=== PATIENT | female | born 1955 | race Caucasian/White ===

== ENCOUNTER 2017-06-06 15:26 | Outpatient (CLI) | payer OTHER ==
[2013-07-14 03:29] VITALS: BP 117/69
[2017-06-06 15:44] LABS: BASOPHILS % 0.7 (0.0-1.5); MEAN CORPUSCULAR HEMOGLOBIN 29.5 pg (28.0-34.0); MEAN CORPUSCULAR VOLUME 87.1 fl (80.0-100.0); MONOCYTES % 7.6 % (0.0-11.0); NEUTROPHILS # 3.9 # k/uL (1.4-7.7)
[2017-06-06 16:33] LABS: eGFR (African) > 60; eGFR (Non-African) > 60
== END 2017-06-06 15:27 ==
LOC: RT 15:26
PROVIDERS: ATTEND Family Medicine
DX: R00.2 Palpitations (principal); R42 Dizziness and giddiness
CPT/HCPCS: 36415; 80053; 84443; 85025

== ENCOUNTER 2017-06-27 16:26 | Outpatient (CLI) | payer OTHER ==
[2013-07-14 03:29] VITALS: BP 117/69
== END 2017-06-27 16:27 ==
LOC: LABRHC 16:26
PROVIDERS: ATTEND Family Medicine
DX: R30.0 Dysuria (principal)
CPT/HCPCS: 87086

== ENCOUNTER 2018-05-03 15:13 | Outpatient (CLI) | payer OTHER ==
[2013-07-14 03:29] VITALS: BP 117/69
[2018-05-03 15:37] LABS: BASOPHILS % 0.6 (0.0-1.5); EOSINOPHILS % 1.3 % (0.0-6.8); MEAN CORPUSCULAR HEMOGLOBIN 29.6 pg (28.0-34.0); MEAN CORPUSCULAR VOLUME 90.3 fl (80.0-100.0); MONOCYTES % 6.5 % (0.0-11.0); NEUTROPHILS # 3.6 # k/uL (1.4-7.7)
[2018-05-03 16:02] LABS: eGFR (African) > 60; eGFR (Non-African) > 60
== END 2018-05-03 15:18 | disposition home or self-care (01) ==
LOC: LAB 15:13
PROVIDERS: ATTEND Family Medicine
DX: R07.9 Chest pain, unspecified (principal)
CPT/HCPCS: 36415; 80048; 84484; 85025

== ENCOUNTER 2018-07-02 16:00 | Outpatient (CLI) | payer OTHER ==
[2013-07-14 03:29] VITALS: BP 117/69
[2018-07-02 16:24] LABS: EOSINOPHILS % 1.5 % (0.0-6.8); MEAN CORPUSCULAR HEMOGLOBIN 30.2 pg (28.0-34.0); MONOCYTES % 8.2 % (0.0-11.0)
[2018-07-02 16:25] LABS: BASOPHILS % 0.5 (0.0-1.5); NEUTROPHILS # 4.9 # k/uL (1.4-7.7)
== END 2018-07-02 16:15 | disposition home or self-care (01) ==
LOC: LAB 16:00
PROVIDERS: ATTEND Family Medicine
DX: R53.82 Chronic fatigue, unspecified (principal); R73.9 Hyperglycemia, unspecified; E05.90 Thyrotoxicosis, unspecified without thyrotoxic crisis or storm
CPT/HCPCS: 83036; 84443; 85025

== ENCOUNTER 2018-08-27 08:00 | Outpatient (CLI) | payer OTHER ==
[2013-07-14 03:29] VITALS: BP 117/69
--- NOTE | 2018-09-06 10:49 | OP Clinic Progress Note ---
SUBJECTIVE: Lizbeth Butt is a 63-year-old female who presented to clinic today for a right 5th ingrown toenail. The patient states that she had an infection start and was placed on antibiotics last week by Dr. Lieberman. She is continuing and will finish the antibiotics still. She has had pain there for a little while now on that right 5th toenail area specifically. She admits to trying spray bandage, soaks, etc., but without success of relieving the pain lately. The patient would like to have the toenail removed and have it removed permanently today after discussion of temporary versus permanent removal. The patient does not admit to any fevers, chills, nausea, vomiting, shortness of breath, or chest pain at this time. OBJECTIVE: VITAL SIGNS: T: 97.6 degrees Fahrenheit, BP: 153/89, heart rate 91, R: 18, oxygen saturation is 96% on room air. VASCULAR: DP and PT pulses are 2+ of the right foot. Capillary refill time is less than 3 seconds to the toes of the right foot. There is no edema of the right foot. DERMATOLOGIC: There is no significant erythema nor any drainage at this time. No purulence noted either. There are no other gross abnormalities noted or hyperkeratosis noted. MUSCULOSKELETAL: There is pain on palpation noted about the right 5th toenail medial and lateral borders. There are no other gross abnormalities noted. NEUROLOGIC: Light touch sensation is intact to the toes of the right foot. ASSESSMENT: Right 5th toe onychocryptosis, medial and lateral borders. PROCEDURE #1: Right 5th toe total nail avulsion with chemical matrixectomy. An alcohol swab was utilized to clean the right 5th toe base and it was injected with 3 mL of 2% lidocaine plain. The toe was then exsanguinated with pressure and a tourniquet applied at the base of the toe. The toe was checked for anesthesia and it was found to be without pain. The right 5th toenail was then removed in its entirety and checked for any remaining nail which was found to be absent. The site was flushed with a copious amount of normal saline. Phenol was then applied utilizing 2 cotton-tip applicators at a time in increments of 45 seconds and then 30 seconds, 30 seconds, 30 seconds, totally 4 applications. The site was then flushed with a copious amount of 70% isopropyl alcohol. The tourniquet was removed and a prompt hyperemic response was noted to the right 5th toe. The site was then flushed again with a copious amount of 70% isopropyl alcohol to make sure that there was nothing remaining. It should be noted that a small amount of acid looks like it exited the surgical site and went between the 4th and 5th toes causing a little bit of whiteness to the lateral 4th toe and medial 5th toe. This was rinsed with a copious amount of the alcohol as mentioned above. This was discussed with the patient and she was encouraged that she may need to utilize a Band-Aid there as well as needed. She will need to keep an eye on that. The right 5th toe was then dried and then dressed with triple antibiotic ointment and a 2 x 2 gauze times 2, followed by 2-inch Zhao and 1-inch Coban beginning on the 5th toe and extending onto the distal forefoot of the right foot. The patient tolerated the procedure well. Hemostasis was obtained with pressure earlier. PLAN: The patient was given instructions and had instructions discussed with her regarding when to remove the bandage tomorrow, as well as soaking and showering instructions. The patient is to change the dressing daily after showering and apply triple antibiotic ointment and a Band-Aid daily. The patient will see me in the [facility] in 2 weeks on in the morning for a follow up, as I am not here next week. Obviously, if she notices any problems, she should be able to go to another provider or the ER for an antibiotic if any concerns. I do not have any concerns for infection really at this time. She seems to be doing well and was encouraged to finish her antibiotic. cc: Dr. Maggie STRAUSS
== END 2018-08-27 08:05 | disposition home or self-care (01) ==
LOC: POD 08:00
PROVIDERS: ATTEND Podiatrist Foot & Ankle Surgery
DX: L60.0 Ingrowing nail (principal)
CPT/HCPCS: 11750; J2001

== ENCOUNTER 2019-05-22 15:27 | Outpatient (CLI) | payer OTHER ==
[2019-04-05 20:00] VITALS: BP 133/79
== END 2019-05-22 15:30 ==
LOC: LABRHC 15:27
PROVIDERS: ATTEND Family Medicine
DX: R30.0 Dysuria (principal)
CPT/HCPCS: 87086

== ENCOUNTER 2019-07-23 15:37 | Outpatient (CLI) | payer OTHER ==
[2019-04-05 20:00] VITALS: BP 133/79
--- NOTE | 2019-07-23 18:47 | Diagnostic Imaging Report ---
PATIENT MR#: [id number] PATIENT PATIENT NAME: CARLOS DEL VALLE DATE OF : 1955 REFERRING PHYSICIAN: TRISTEN LAUREANO EXAM DATE: 07/23/2019 ACCESSION NUMBER: [id number] EXAM DESCRIPTION: FOOT 3 VIEWS OR MORE CLINICAL HISTORY: RIGHT FOOT PAIN; MOST PAIN IN THE AREA OF THE 5TH METATARSAL. SX OF 1ST METATARSAL WAS DONE 5 YEARS AGO COMPARISON: No study for comparison is available at the time of interpretation. TECHNIQUE: DX right foot, 3 views Osseous structures: Status post 1st MTP arthroplasty, with intact hardware. The osseous structures ar e normal with no evidence of fracture or dislocation. Joint spaces: The bones are well aligned. No articular surface abnormality is noted. Soft tissues: There is normal appearance of the soft tissues. IMPRESSION: 1. 1st MTP arthroplasty. 2. No evidence of acute fracture. Read by: Dr. Fortunato Hong Transcribed by: Fortunato Hong Transcribed Date: 07/23/2019 6:47:07 PM Electronically signed by: Dr. Fortunato Hong Date signed: 07/23/2019 6:47:07 PM
== END 2019-07-23 15:47 ==
LOC: RAD 15:37
PROVIDERS: ATTEND Podiatrist Foot & Ankle Surgery
DX: M79.671 Pain in right foot (principal)
CPT/HCPCS: 73630

== ENCOUNTER 2019-08-01 13:56 | Outpatient (CLI) | payer OTHER ==
[2019-04-05 20:00] VITALS: BP 133/79
--- NOTE | 2019-08-05 16:46 | History and Physical Report ---
DATE OF VISIT: 08/01/2019 HISTORY AND PHYSICAL HISTORY OF PRESENT ILLNESS: The patient presented recently to clinic for a painful right fifth toe and fifth metatarsal head area. Awhile back we removed the total nail and did a chemical matrixectomy and she began getting what appeared to be a callus that she thought was a nail. This was debrided and continued causing pain despite wider shoe efforts as well as a silicone pad. The patient now has a toenail that is beginning to grow back somehow as she must be one of the 5% that this did not work successfully on with the chemical matrixectomy. She understands that we will try and work on the surgery stuff first and then consider removing the toenail later as I do not want to use phenol so close to a surgical site. The patient is here for follow-up and would like to plan for surgery as we discussed that would be a possibility due to the x-rays showing significant exostosis on the lateral aspect of the right fifth metatarsal head that is painful to her with palpation as well as in shoes no matter what type of shoe she uses. She also is looking at a hammertoe surgery to derotate the fifth toe so that she is not walking on the lateral aspect of the toe causing pain there. PAST MEDICAL HISTORY: The patient is positive for waking up sick with throwing up from general anesthesia. She also has a history of tobacco use of half pack per day for 30 years. She is 8 weeks cigarette-free at this time, however. She is doing great with that. She also admits ethyl alcohol approximately one time per month. Otherwise, she is negative for a past medical history of diabetes, hepatitis, bleeding disorder, AIDS, or HIV, cardiovascular disease, COPD or pulmonary disease, stroke, mini-stroke, hypertension or substance abuse. She does admit to a history of most recent hypothyroid. She is on levothyroxine for that. PAST SURGICAL HISTORY: In 1978 exploratory miscarriage, in 1983 hysterectomy, in 1985 hernia at the belly button, 1988 gallbladder surgery, 1990 carpal tunnel of both hands, 2011 breast implants, 2014 hemiarthroplasty of the right great toe first metatarsophalangeal joint. The patient has a history of 2 miscarriages in 1971 and 1978. FAMILY HISTORY: The patients mom and sister have diabetes mellitus. A sister of leukemia cancer, and her brother of cancer but it is unknown which type to her. Her sister has lung cancer currently. She has no history of general anesthesia issues in her family. 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 REVIEW OF SYSTEMS: General: The patient is feeling well and without issues today. Skin: The patient has no rashes or open lesions in the skin. Eyes: No recent vision changes recently. Cardiovascular: She has no chest pain or palpitations. Gastrointestinal: She denies any blood or pain with bowel movements. She does admit bloating and constipation more recently for which Metamucil helps her a lot. She admits in the past she has had issues with constipation with pain medication after a surgery and that she used Metamucil which also helped her a lot. Neurologic: No numbness, burning or tingling. Genitourinary: No pain or blood in the urine. She does get an occasional UTI. Endocrine: There is no blood glucose issues. She is hypothyroid and is on levothyroxine 25 mcg daily. Hematologic: There is no bleeding issues. Ears, nose and throat: There are no masses, drainage or sore throat. She is not having any issues breathing at all. Pulmonary: No shortness of breath problems. Musculoskeletal: There is pain in the fifth toe on the right foot as well as right fifth metatarsal head laterally. This has been going on for a long time now. Psychiatric: No depression or anxiety. CURRENT MEDICATIONS: 1. The patient is on Chantix 1 mg b.i.d. 2. Albuterol inhaler only occasional. 3. She is on tramadol as needed, being used maybe one time a week or once per weekend. 4. Levothyroxine 25 mcg daily. 5. Pramipexole 3 mg nightly (1.5 mg, 2 tablets nightly totaling 3 mg she is taking). 6. She is also on Estroven which is more of a natural supplement postmenopausal. ALLERGIES: SHE DENIES ANY ALLERGIES TO ANY REACTIONS TO ANY MEDICINES AT ALL. PERTINENT PHYSICAL EXAM: Mental status: The patient is alert, awake and oriented x3. Head and neck: She is atraumatic and normocephalic with a midline trachea. Eyes: The extraocular muscles are intact bilaterally. There is no drainage or irritation. Heart: Fairly normal S1 and S2 rhythm. The S2 has a slight abnormal sound that I am not familiar with which is worth listening to by Anesthesia. Neurologic: Symmetric light touch sensation to bilateral lower legs. Ears, nose and throat: No masses or abnormal lesions noted. The trachea is midline. There is no abnormal visual appearance of the nose. Lungs: Clear to auscultation bilaterally. Vascular: 2+ DP and PT pulses are noted of the right foot. Capillary refill time is immediate to the toes, right foot, all of the toes including the fifth toe. There is perhaps mild edema in the right fifth toe from irritation. Dermatologic: There is notable mild hyperkeratosis on the lateral aspect of the distal phalanx near the lateral toenail that is beginning to form again on the right fifth toe. There is mild red irritation as well as the metatarsal head as well of the fifth metatarsal as well as the right fifth toe. There are no other gross abnormalities noted, skin abnormalities noted or open lesions. No preauricular or postauricular lymph nodes palpated. There is no pain on palpation at the sinuses in the face. Musculoskeletal: There is pain on palpation noted at the right lateral fifth toe as well as the right lateral fifth metatarsal head. There is obvious prominence of the right fifth metatarsal head clinically as well as on x-ray. ASSESSMENT AND PLAN: 1. Hyperkeratosis of right fifth toe, L85.9. 2. Acquired hammertoe deformity of the lesser toe of the right foot, M20.41. 3. Exostosis of the bone of the foot (right fifth metatarsal head laterally), M89.8X7. 4. Preoperative evaluation. The risks and benefits of a surgery for a right fifth toe proximal interphalangeal joint arthroplasty with possible wire as well as right fifth metatarsal head lateral exostectomy was discussed with the patient that include but are not limited to bleeding, infection, undercorrection, overcorrection, floppy toe, possible return of digital deformity, loss of limb and loss of life and the patient has agreed both by written and verbal consent to go forward with the above procedure at this time. The patient has had discussed with her the importance of the plan for surgery with a boot that she will be in after surgery. She will have sutures out in approximately 2 to 2-1/2 weeks after surgery. She will have the K-wire that we may use removed at approximately 3 weeks. She will need to be in a boot and stay off of it as much as possible the first couple weeks but she will be okay to walk short distances. She will stay off of her foot for the first weekend after surgery completely. She will elevate a lot. It is better the longer she can stay off of this that we will need to monitor this carefully as she plans to go back to work the week after the surgery. The plan for surgery is going to be 08/28/19 as long as we get everything lined up for her. She will need to obtain a CBC, CMP, and EKG. We will not worry about a chest x-ray as Anesthesia states they are not worried about that with respect to her history of smoking. She is sounding overall good in her lungs. We discussed a visual depiction of the plan for an exostectomy of the fifth metatarsal head laterally as well as derotation arthroplasty where we will be removing some bone in the proximal phalanx head and possibly placing a K-wire to help hold the toe straight but may go into the fifth metatarsal. She understood this and signed her initials next to the picture understanding that is the plan. The patient will be wearing a boot afterwards. She is dispensed the boot that she is to get used to wearing now before she has surgery to prepare for it. This was obtained from the emergency room and the patient now has it to use at home. The patient was encouraged to get an appointment with Dr. Lieberman for clearance and we will send out the medical clearance form for surgery to Dr. Lieberman to go over with her. The patient is to obtain labs at least tomorrow or later before her appointment with Dr. Lieberman as well as her EKG to get approval from her for surgery. She is on thyroid medication and was encouraged to bring her thyroid medication and have it with her to surgery so that she can use it as needed for surgery. The patient had no further questions or concerns and she was given information to read prior to surgery and she will need to be without food or drink the night before surgery, etc. She knows to not take any blood thinning medication such as Advil or Aleve and the patient knows to not be using any herbal medications. She also knows that she cannot have any piercings and she states she will have them all out for surgery. She states they are all removable. I believe the patient has exhausted efforts with wider shoes and padding for the areas of pain on the right foot laterally and I do feel that this would be great procedure for her at this time to do, both procedures. We will later consider removal of the fifth toenail again permanently if needed at that time. The patient has no further questions or concerns and we will see her for surgery in August once we get this approved. She knows we will plan on the but does not have a time until we can get this confirmed. We will try and review with her again before surgery postop plans with respect to being in a boot for likely 4-6 weeks. We are not waiting for any bone to heal or fuse necessarily so she will likely need to be in a boot for about 4 weeks to make sure this is feeling good. Abhi Bhatti D.P.M. Tona Job#: [id number] MTDD
== END 2019-08-01 14:25 ==
LOC: POD 13:56
PROVIDERS: ATTEND Podiatrist Foot & Ankle Surgery
DX: Z01.818 Encounter for other preprocedural examination (principal); M89.8X7 Other specified disorders of bone, ankle and foot; M20.41 Other hammer toe(s) (acquired), right foot; L85.9 Epidermal thickening, unspecified
CPT/HCPCS: 99213

== ENCOUNTER 2019-09-09 12:36 | Outpatient (CLI) | payer OTHER ==
[2019-04-05 20:00] VITALS: BP 133/79
[2019-09-09 13:45] LABS: BASOPHILS % 0.6 % (0.0-1.5); NEUTROPHILS # 3.3 # k/uL (1.4-7.7)
[2019-09-09 14:14] LABS: eGFR (Non-African) > 60
== END 2019-09-09 12:42 ==
LOC: LAB 12:36
PROVIDERS: ATTEND Family Medicine
DX: E03.9 Hypothyroidism, unspecified (principal); R42 Dizziness and giddiness
CPT/HCPCS: 36415; 80053; 84443; 85025; 93005

== ENCOUNTER 2019-09-10 13:54 | Outpatient (CLI) | payer OTHER ==
[2019-04-05 20:00] VITALS: BP 133/79
--- NOTE | 2019-09-12 09:04 | Diagnostic Imaging Report ---
[facility] [address] [facility] [id number] Patient Name: CARLOS DEL VALLE Referring Physician: DR CAPRICE METCALF Date of : 1955 Gender: F Date of Service: 09/10/2019 Exam Requested: CT BRAIN W/O CONTRAST CT BRAIN HISTORY: DIZZINESS AND HEADACHES FOR 3 WEEKS, VERTIGO. TECHNIQUE: Scans through the brain were obtained without contrast. FINDINGS: Bone window settings demonstrate no calvarial abnormality. Paranasal sinuses and mastoid air cells included on the study are unremarkable. There is no evidence of intra-or extra axial mass lesion, midline shift, subdural hematoma, hemorrhage, or focal CVA identified. Lateral ventricles and basilar cisterns are normal. Orbits are unremarkable. IMPRESSION: Unremarkable unenhanced head CT. Note: Total DLP 738.82 milligray/cm
== END 2019-09-10 14:04 ==
LOC: RAD 13:54
PROVIDERS: ATTEND Family Medicine
DX: R42 Dizziness and giddiness (principal); R51 Headache
CPT/HCPCS: 70450